=== PATIENT | female | born 1975 | race African-American/Black ===

== ENCOUNTER 2017-02-11 11:53 | Inpatient (IN) | payer OTHER ==
[~2017-02-11] VITALS: Ht 165.1 cm; Wt 47.6 kg
[2017-02-11] MEDS ORDERED: HYDROmorphone 1mg/ml Carpuject IVP PRN ×4 (13:00→15:00)
[2017-02-11 13:30] VITALS: BP 142/78
[2017-02-11] MEDS ORDERED: Hydromorphone 0.5mg/0.5ml inj IVP PRN ×2 (13:45)
[2017-02-11] MEDS: Hydromorphone 0.5mg/0.5ml inj IVP PRN ×5 (13:51→23:52)
[2017-02-11 14:21] LABS: BASOPHILS % (AUTO) 1.1 % (0.0-2.0); EOSINOPHILS % (AUTO) 0.9 % (0.0-3.0); LYMPHOCYTES % (AUTO) 9.5 % (20.0-45.0); MEAN CORPUSCULAR HEMOGLOBIN 31.4 PG (27.0-31.0); MEAN CORPUSCULAR HGB CONC 32.8 G/DL (32.0-36.0); MEAN CORPUSCULAR VOLUME 95 FL (80-99); MEAN PLATELET VOLUME 7.3 FL (6.5-10.1); NEUTROPHILS % (AUTO) 80.4 % (45.0-75.0); PLATELET COUNT 373 K/UL (150-450); RED BLOOD COUNT 3.64 M/UL (4.20-5.40); RED CELL DISTRIBUTION WIDTH 10.6 % (11.6-14.8); WHITE BLOOD COUNT 9.4 K/UL (4.8-10.8)
[2017-02-11 14:29] LABS: ANION GAP 12 mmol/L (5-15); CALCIUM 9.3 MG/DL (8.5-10.1); CARBON DIOXIDE 27 MMOL/L (21-32); CHLORIDE 99 MMOL/L (98-107); CREATININE 0.8 MG/DL (0.55-1.30); GLOMERULAR FILTRATION RATE > 60 mL/min (>60); POTASSIUM 3.4 MMOL/L (3.5-5.1); SODIUM 138 MMOL/L (136-145)
[2017-02-11] MEDS: Potassium Chloride 30 MEQ in Dextrose 5%/Lactated Ringer's 1,000 ML IV SCH ×2 (14:30→18:47)
[2017-02-11] MEDS ORDERED: ceFAZolin 1gm in D5W 55ml IVP ONE (14:30)
--- NOTE | 2017-02-11 17:02 | Diagnostic Imaging Report ---
Indication: Abdominal pain Technique: Supine view of the abdomen Comparison: none Findings: Moderate amount of gas is seen in nondilated large and small bowel loops. No unusual masses or calcifications. Featureless pelvis is probably related to an enlarged uterus Impression: No acute process
[2017-02-11] MEDS ORDERED: Bisacodyl EC 5mg tab ORAL PRN (17:30)
[2017-02-11] MEDS ORDERED: Miralax 17gm pkt ORAL PRN (17:30)
[2017-02-11] MEDS: ceFAZolin sod 1 GM in D5W 55 ML IVPB SCH ×2 (17:32→21:22)
[2017-02-11] MEDS: Docusate 100mg cap ORAL SCH (17:54)
[2017-02-11 21:00] VITALS: BP 122/78
--- NOTE | 2017-02-11 23:45 | Consultation ---
DATE OF CONSULTATION: 02/11/2017 INTERNAL MEDICINE CONSULTATION CHIEF COMPLAINT: Abdominal pain. HISTORY OF PRESENT ILLNESS: The patient is a very pleasant 41-year-old woman who comes to the hospital 2 days following uterine artery embolization done because of large fibroid uterus. She had a postprocedure pain, which was unremitting. She took tramadol without improvement. She had a poor appetite and intake and was constipated. She called Dr. Wilder, who recommended hospitalization. She was admitted directly today. PAST MEDICAL HISTORY: The patient had 2 emergency room visits recently for pelvic pain, but no diagnosis was made. She has a large fibroid uterus and recent embolization as noted above. She has had no pregnancies. She has no history of cardiovascular disease or other major medical problems. ALLERGIES: Tylenol. MEDICATIONS: Reviewed. REVIEW OF SYSTEMS: Otherwise unremarkable. PHYSICAL EXAMINATION: VITAL SIGNS: Normal. The blood pressure is slightly elevated. HEENT: The head is normocephalic. NECK: No jugular venous distention. CHEST: Clear. CARDIAC: Rhythm is regular. ABDOMEN: Soft. There is no liver or spleen enlargement. There is a mass in the pelvis, which is easily palpable and somewhat tender. EXTREMITIES: Have no clubbing, cyanosis, or edema. IMPRESSIONS: 1. Pelvic pain. 2. Constipation. 3. Status post uterine artery embolization for fibroid uterus. PLAN: The patient will be given intravenous fluids, antibiotics, analgesics and laxatives. I will follow her closely with you. Oc Cobian M.D. DR: BRIAN JOB#: [id number] CC: Milo Wilder M.D.; Fax#: [phone] OC COBIAN M.D. ; FAX#: [phone]
[2017-02-12] VITALS (7 sets, daily range): BP systolic 103–118; BP diastolic 62–72
[2017-02-12] MEDS: Hydromorphone 0.5mg/0.5ml inj IVP PRN ×12 (01:23→23:52)
[2017-02-12] MEDS: Potassium Chloride 30 MEQ in Dextrose 5%/Lactated Ringer's 1,000 ML IV SCH ×4 (03:42→23:52)
[2017-02-12] MEDS: ceFAZolin sod 1 GM in D5W 55 ML IVPB SCH ×3 (05:04→22:10)
[2017-02-12 06:59] LABS: BASOPHILS % (AUTO) 0.3 % (0.0-2.0); EOSINOPHILS % (AUTO) 1.2 % (0.0-3.0); LYMPHOCYTES % (AUTO) 11.8 % (20.0-45.0); MEAN CORPUSCULAR HEMOGLOBIN 30.8 PG (27.0-31.0); MEAN CORPUSCULAR VOLUME 93 FL (80-99); MEAN PLATELET VOLUME 7.5 FL (6.5-10.1); NEUTROPHILS % (AUTO) 77.7 % (45.0-75.0); PLATELET COUNT 300 K/UL (150-450); RED CELL DISTRIBUTION WIDTH 10.4 % (11.6-14.8); WHITE BLOOD COUNT 9.2 K/UL (4.8-10.8)
[2017-02-12 07:20] LABS: ALANINE AMINOTRANSFERASE 8 U/L (12-78); ALBUMIN/GLOBULIN RATIO 0.7 (1.0-2.7); ANION GAP 8 mmol/L (5-15); ASPARTATE AMINO TRANSFERASE 19 U/L (15-37); CALCIUM 7.9 MG/DL (8.5-10.1); CARBON DIOXIDE 27 MMOL/L (21-32); CHLORIDE 102 MMOL/L (98-107); CREATININE 0.8 MG/DL (0.55-1.30); GLOMERULAR FILTRATION RATE > 60 mL/min (>60); POTASSIUM 3.4 MMOL/L (3.5-5.1); SODIUM 137 MMOL/L (136-145); TOTAL PROTEIN 7.2 G/DL (6.4-8.2)
[2017-02-12] MEDS: Docusate 100mg cap ORAL SCH ×2 (08:24→18:28)
[2017-02-12] MEDS ORDERED: Fleet's Enema 133ml RECTAL ONE (09:00)
--- NOTE | 2017-02-12 09:34 | General Progress Note ---
Assessment/Plan Assessment/Plan 1. Pelvic pain. 2. Constipation. 3. Status post uterine artery embolization for fibroid uterus. MRI pdg Hgb down likely hydration still with pain requires IV dilaudid just got enema K low, rx cont rx repeat labs Subjective Gastrointestinal/Abdominal: Reports: abdominal pain, constipated Allergies: Coded Allergies: ACETAMINOPHEN (Verified Allergy, Severe, 02/11/17) Rectal Bleeding ASPIRIN (Verified Allergy, Unknown, 02/11/17) NSAIDS (NON-STEROIDAL ANTI-INFLAMMA (Verified Allergy, Unknown, 02/11/17) Objective Last 24 Hour Vital Signs Date Time Temp Pulse Resp B/P (MAP) Pulse Ox O2 Delivery O2 Flow Rate FiO2 02/12/17 08:29 99.6 99 18 109/69 100 Room Air 02/12/17 05:00 98.6 02/12/17 04:00 99.8 82 18 116/67 98 Room Air 02/12/17 00:45 98.3 02/12/17 00:05 100.6 02/12/17 00:00 99.0 84 18 103/62 98 Room Air 02/11/17 21:00 99.6 80 18 122/78 100 Room Air 02/11/17 17:31 98.5 02/11/17 13:30 98.5 93 20 142/78 99 Room Air Intake and Output 02/11/17 02/12/17 19:00 07:00 Intake Total 1440 ml Balance 1440 ml Intake Oral 240 ml IV Total 1200 ml # Voids 1 4 Laboratory Tests 02/11/17 13:45: White Blood Count 9.4, Red Blood Count 3.64L, Hemoglobin 11.4L, Hematocrit 34.8L , Mean Corpuscular Volume 95, Mean Corpuscular Hemoglobin 31.4H, Mean Corpuscular Hemoglobin Concent 32.8, Red Cell Distribution Width 10.6L, Platelet Count 373, Mean Platelet Volume 7.3, Neutrophils (%) (Auto) 80.4H, Lymphocytes (%) (Auto) 9.5L, Monocytes (%) (Auto) 8.0, Eosinophils (%) (Auto) 0.9, Basophils (%) (Auto) 1.1, Sodium Level 138, Potassium Level 3.4L, Chloride Level 99, Carbon Dioxide Level 27, Anion Gap 12, Blood Urea Nitrogen 4L, Creatinine 0.8, Estimat Glomerular Filtration Rate > 60, Glucose Level 91, Calcium Level 9.3 02/12/17 05:00: White Blood Count 9.2, Red Blood Count 3.20L, Hemoglobin 9.9L, Hematocrit 29.9L , Mean Corpuscular Volume 93, Mean Corpuscular Hemoglobin 30.8, Mean Corpuscular Hemoglobin Concent 33.0, Red Cell Distribution Width 10.4L, Platelet Count 300, Mean Platelet Volume 7.5, Neutrophils (%) (Auto) 77.7H, Lymphocytes (%) (Auto) 11.8L, Monocytes (%) (Auto) 9.0, Eosinophils (%) (Auto) 1.2, Basophils (%) (Auto) 0.3, Sodium Level 137, Potassium Level 3.4L, Chloride Level 102, Carbon Dioxide Level 27, Anion Gap 8, Blood Urea Nitrogen 2L, Creatinine 0.8, Estimat Glomerular Filtration Rate > 60, Glucose Level 119H, Calcium Level 7.9L, Total Bilirubin 0.4, Aspartate Amino Transf (AST/SGOT) 19, Alanine Aminotransferase (ALT/SGPT) 8L, Alkaline Phosphatase 43L, Total Protein 7.2, Albumin 2.9L, Globulin 4.3, Albumin/Globulin Ratio 0.7L Height (Feet): 5 Height (Inches): 5.00 Weight (Pounds): 105 General Appearance: mild distress Cardiovascular: normal rate Abdomen: soft, tender, mass - pelvic OC FLORES Feb 12, 2017 09:34
--- NOTE | 2017-02-12 10:43 | General Surgery Progress Note ---
General Surgery-Progress Note Subjective Day of Surgery: february 09 Reason for Consult post op pain, uncontrolled Procedure Performed uterine artery embolization Symptoms: improved, tolerating diet, passing flatus, BM Additional Comments watery BM post fleets enema Objective Last 24 Hour Vital Signs Date Time Temp Pulse Resp B/P (MAP) Pulse Ox O2 Delivery O2 Flow Rate FiO2 02/12/17 08:29 99.6 99 18 109/69 100 Room Air 02/12/17 05:00 98.6 02/12/17 04:00 99.8 82 18 116/67 98 Room Air 02/12/17 00:45 98.3 02/12/17 00:05 100.6 02/12/17 00:00 99.0 84 18 103/62 98 Room Air 02/11/17 21:00 99.6 80 18 122/78 100 Room Air 02/11/17 17:31 98.5 02/11/17 13:30 98.5 93 20 142/78 99 Room Air I&O Intake and Output 02/11/17 02/12/17 19:00 07:00 Intake Total 1440 ml Balance 1440 ml Intake Oral 240 ml IV Total 1200 ml # Voids 1 4 Dressing: dry Wound: clean, dry, intact Drains: none Cardiovascular: RSR Respiratory: clear Abdomen: soft, flat, scaphoid, tenderness, present bowel sounds Extremities: no edema, no tenderness, no cyanosis Laboratory Tests Test 02/11/17 13:45 02/12/17 05:00 White Blood Count 9.4 K/UL (4.8-10.8) 9.2 K/UL (4.8-10.8) Red Blood Count 3.64 M/UL (4.20-5.40) L 3.20 M/UL (4.20-5.40) L Hemoglobin 11.4 G/DL (12.0-16.0) L 9.9 G/DL (12.0-16.0) L Hematocrit 34.8 % (37.0-47.0) L 29.9 % (37.0-47.0) L Mean Corpuscular Volume 95 FL (80-99) 93 FL (80-99) Mean Corpuscular Hemoglobin 31.4 PG (27.0-31.0) H 30.8 PG (27.0-31.0) Mean Corpuscular Hemoglobin Concent 32.8 G/DL (32.0-36.0) 33.0 G/DL (32.0-36.0) Red Cell Distribution Width 10.6 % (11.6-14.8) L 10.4 % (11.6-14.8) L Platelet Count 373 K/UL (150-450) 300 K/UL (150-450) Mean Platelet Volume 7.3 FL (6.5-10.1) 7.5 FL (6.5-10.1) Neutrophils (%) (Auto) 80.4 % (45.0-75.0) H 77.7 % (45.0-75.0) H Lymphocytes (%) (Auto) 9.5 % (20.0-45.0) L 11.8 % (20.0-45.0) L Monocytes (%) (Auto) 8.0 % (1.0-10.0) 9.0 % (1.0-10.0) Eosinophils (%) (Auto) 0.9 % (0.0-3.0) 1.2 % (0.0-3.0) Basophils (%) (Auto) 1.1 % (0.0-2.0) 0.3 % (0.0-2.0) Sodium Level 138 MMOL/L (136-145) 137 MMOL/L (136-145) Potassium Level 3.4 MMOL/L (3.5-5.1) L 3.4 MMOL/L (3.5-5.1) L Chloride Level 99 MMOL/L (98-107) 102 MMOL/L (98-107) Carbon Dioxide Level 27 MMOL/L (21-32) 27 MMOL/L (21-32) Anion Gap 12 mmol/L (5-15) 8 mmol/L (5-15) Blood Urea Nitrogen 4 mg/dL (7-18) L 2 mg/dL (7-18) L Creatinine 0.8 MG/DL (0.55-1.30) 0.8 MG/DL (0.55-1.30) Estimat Glomerular Filtration Rate > 60 mL/min (>60) > 60 mL/min (>60) Glucose Level 91 MG/DL (74-106) 119 MG/DL (74-106) H Calcium Level 9.3 MG/DL (8.5-10.1) 7.9 MG/DL (8.5-10.1) L Total Bilirubin 0.4 MG/DL (0.2-1.0) Aspartate Amino Transf (AST/SGOT) 19 U/L (15-37) Alanine Aminotransferase (ALT/SGPT) 8 U/L (12-78) L Alkaline Phosphatase 43 U/L (46-116) L Total Protein 7.2 G/DL (6.4-8.2) Albumin 2.9 G/DL (3.4-5.0) L Globulin 4.3 g/dL Albumin/Globulin Ratio 0.7 (1.0-2.7) L Imaging pelvic mri reviewed, normal post embolization changes, normal bowel, x ray, abdomen, no ileus. Additional Comments normal white count, doubt infection, normal temperature elevation following embolization Plan Additional Comments ambulate, increase diet as tolerated, change to oral pain medication when possible. dr killian is covering the patient this week end. Milo Wilder MD Feb 12, 2017 10:43
--- NOTE | 2017-02-12 11:09 | Diagnostic Imaging Report ---
Indication: Abdominal pain status post uterine fibroid embolization Technique: MRI Pelvis wo/w Contrast MRI of the pelvis was obtained utilizing a multiplanar, multisequence acquisition before and after the administration of IV gadolinium. Acquired sequences: 3 plane localizer, sagittal and axial T2 FRSFE, Axial and coronal T2 FRSFE fat-sat, axial T1 FSE, axial lava, oblique coronal T2, axial T1 F/S pre, axial and coronal T1 fat-sat postcontrast. Comparison: None Findings: Dominant submucosal fibroid along the right aspect of the uterus measures approximately 9 cm AP by 8 cm transverse by 7.5 cm craniocaudal. Additional smaller fibroid in the posterior aspect of the uterus on the left measures 2.3 cm AP by 3.4 cm transverse by 2.7 cm craniocaudal. Postcontrast imaging shows no enhancement in the smaller fibroid relative to the uterus. The larger fibroid shows heterogeneous enhancement but significantly decreased enhancement when compared to the uterus. Correlation to preprocedure imaging would be helpful for better assessment of treatment effect. Left ovary is slightly enlarged compared to the right ovary, measuring approximately 3.5 x 2.3 cm compared to approximately 2.7 x 1.7 cm. Multiple follicular cysts are seen in the left ovary. Ovarian enhancement appears symmetric. Small amount of free pelvic fluid is noted, likely physiologic. Imaged portions of the bowel are unremarkable in appearance. Osseous structures are unremarkable in appearance. Imaged vascular structures are normal in caliber. Impression: Fibroid uterus with 2 dominant fibroids, largest measuring up to 9 cm in diameter. Smaller fibroid demonstrates no significant postcontrast enhancement. Heterogeneous enhancement is noted within the larger fibroid. Correlation to pre uterine artery embolization imaging would be helpful for better assessment of treatment effect. Slightly increased size of the left ovary when compared to the right, likely related to increased number of follicles/cysts on the left. Consider pelvic ultrasound for evaluation of vascular flow to the ovaries to exclude the remote possibility of early torsion in this patient with postprocedural pain. Imaged portions of the bowel are unremarkable in appearance. Findings and images reviewed in person with referring physician Dr. Tina MD.
--- NOTE | 2017-02-12 11:18 | Diagnostic Imaging Report ---
Indication: Abdominal pain status post uterine fibroid embolization Technique: MRI of the pelvis was obtained utilizing a multiplanar/multisequence technique. 3-D reconstructions were created on a stand-alone workstation and archived to PACS. Comparison: Correlation made to concurrent MRI of the pelvis without and with contrast. Findings: Abdominal aorta, internal/external iliac arteries, common femoral artery and visualized portions of the superficial femoral and profunda femoris arteries are patent and of normal caliber bilaterally. There is no evidence to suggest aneurysm or stenosis bilaterally. Some flow related signal is noted in the expected regions of the bilateral uterine arteries, left greater than right. There is question of possible flow to the dominant right-sided fibroid via ovarian collaterals. Comparison with previous examination would be of help to assess for interval change after embolization. Impression: Some flow related signal noted in the bilateral uterine arteries, left greater than right. Suggestion of a degree of right ovarian artery supply to the dominant fibroid. Again, comparison with preembolization imaging would be helpful for better assessment of treatment effect. Findings and images reviewed in person with referring physician Dr. Tina MD.
[2017-02-12] MEDS ORDERED: NS 500ML ONE (17:14)
[2017-02-12] MEDS ORDERED: Tubing IV Secondary IV ONE (17:14)
[2017-02-13] MEDS: Hydromorphone 0.5mg/0.5ml inj IVP PRN ×9 (01:28→22:23)
[2017-02-13 05:00] VITALS: BP 105/67
[2017-02-13] MEDS: ceFAZolin sod 1 GM in D5W 55 ML IVPB SCH ×3 (05:06→22:00)
[2017-02-13] MEDS: Potassium Chloride 30 MEQ in Dextrose 5%/Lactated Ringer's 1,000 ML IV SCH ×3 (05:10→22:01)
[2017-02-13 07:48] LABS: BASOPHILS % (AUTO) 0.6 % (0.0-2.0); EOSINOPHILS % (AUTO) 2.2 % (0.0-3.0); LYMPHOCYTES % (AUTO) 10.9 % (20.0-45.0); MEAN CORPUSCULAR HEMOGLOBIN 31.3 PG (27.0-31.0); MEAN CORPUSCULAR HGB CONC 33.3 G/DL (32.0-36.0); MEAN CORPUSCULAR VOLUME 94 FL (80-99); MEAN PLATELET VOLUME 7.1 FL (6.5-10.1); NEUTROPHILS % (AUTO) 77.4 % (45.0-75.0); PLATELET COUNT 305 K/UL (150-450); RED BLOOD COUNT 3.04 M/UL (4.20-5.40); RED CELL DISTRIBUTION WIDTH 10.3 % (11.6-14.8); WHITE BLOOD COUNT 7.3 K/UL (4.8-10.8)
[2017-02-13 08:00] VITALS: BP 109/59
[2017-02-13] MEDS: Docusate 100mg cap ORAL SCH ×2 (08:18→20:48)
[2017-02-13 08:21] LABS: ANION GAP 7 mmol/L (5-15); CALCIUM 8.1 MG/DL (8.5-10.1); CARBON DIOXIDE 28 MMOL/L (21-32); CHLORIDE 103 MMOL/L (98-107); CREATININE 0.7 MG/DL (0.55-1.30); GLOMERULAR FILTRATION RATE > 60 mL/min (>60); POTASSIUM 4.1 MMOL/L (3.5-5.1); SODIUM 138 MMOL/L (136-145)
[2017-02-13 12:00] VITALS: BP 103/63
--- NOTE | 2017-02-13 18:25 | Pulmonology Progress Note ---
Assessment/Plan Assessment/Plan 1. Pelvic pain. 2. Constipation. 3. Status post uterine artery embolization for fibroid uterus. Hgb down likely hydration still with pain requires IV dilaudid bowel care replaced lytes pen monitor uop labs stable dc planning when pain controlled Subjective Constitutional: Reports: no symptoms HEENT: Repors: no symptoms Respiratory: Reports: no symptoms Cardiovascular: Reports: no symptoms Gastrointestinal/Abdominal: Reports: bloating, other Genitourinary: Reports: no symptoms Neurologic: Reports: no symptoms Allergies: Coded Allergies: ACETAMINOPHEN (Verified Allergy, Severe, 02/11/17) Rectal Bleeding ASPIRIN (Verified Allergy, Unknown, 02/11/17) NSAIDS (NON-STEROIDAL ANTI-INFLAMMA (Verified Allergy, Unknown, 02/11/17) Subjective complains of pain positive uop no bm no cp mild nauese mnimal bleeding lgt noted Objective Last 24 Hour Vital Signs Date Time Temp Pulse Resp B/P (MAP) Pulse Ox O2 Delivery O2 Flow Rate FiO2 02/13/17 16:00 97.0 02/13/17 12:00 99.1 102 18 103/63 99 Room Air 02/13/17 08:00 98.0 100 18 109/59 99 Room Air 02/13/17 05:00 98.4 98 18 105/67 100 Room Air 02/12/17 23:50 98.2 92 18 108/71 98 Room Air 02/12/17 20:45 98.3 02/12/17 20:00 100.0 94 18 109/68 98 Intake and Output 02/12/17 02/13/17 19:00 07:00 Intake Total 1530 ml 1200 ml Balance 1530 ml 1200 ml Intake Oral 720 ml IV Total 810 ml 1200 ml # Voids 2 4 # Bowel Movements 3 General Appearance: WD/WN Respiratory/Chest: lungs clear, no respiratory distress Cardiovascular: normal rate, regular rhythm Abdomen: distended, tender Extremities: no cyanosis, no clubbing Skin: no ulcers 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: 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 grossly normal, oriented x 3 Laboratory Tests 02/13/17 06:46: White Blood Count 7.3, Red Blood Count 3.04L, Hemoglobin 9.5L, Hematocrit 28.6L , Mean Corpuscular Volume 94, Mean Corpuscular Hemoglobin 31.3H, Mean Corpuscular Hemoglobin Concent 33.3, Red Cell Distribution Width 10.3L, Platelet Count 305, Mean Platelet Volume 7.1, Neutrophils (%) (Auto) 77.4H, Lymphocytes (%) (Auto) 10.9L, Monocytes (%) (Auto) 9.0, Eosinophils (%) (Auto) 2.2, Basophils (%) (Auto) 0.6, Sodium Level 138, Potassium Level 4.1, Chloride Level 103, Carbon Dioxide Level 28, Anion Gap 7, Blood Urea Nitrogen 1L, Creatinine 0.7, Estimat Glomerular Filtration Rate > 60, Glucose Level 115H, Calcium Level 8.1L Current Medications Medications (Trade) Dose Ordered Sig/Kayli Route PRN Reason Start Time Stop Time Status Last Admin Dose Admin Bisacodyl (Dulcolax) 10 mg DAILYPRN PRN ORAL Constipation 02/11/17 17:30 03/13/17 17:29 Cefazolin Sodium 1 gm/Dextrose 55 ml @ 110 mls/hr Q8HR IVPB 02/11/17 15:30 02/18/17 15:29 02/13/17 13:42 Diphenhydramine HCl (Benadryl) 50 mg HSPRN PRN ORAL Insomnia 02/11/17 21:00 03/13/17 20:59 Diphenhydramine HCl (Benadryl) 50 mg Q4H PRN ORAL Itching 02/11/17 13:30 03/13/17 13:29 Docusate Sodium (Colace) 100 mg TWICE A DAY ORAL 02/11/17 18:00 03/13/17 17:59 02/12/17 18:28 Hydromorphone HCl (Dilaudid) 1 mg EVERY HOUR PRN IVP Severe Pain (Pain Scale 7-10) 02/11/17 13:45 02/18/17 12:59 02/13/17 17:25 Hydromorphone HCl (Dilaudid) 1 mg Q2H PRN IVP Moderate Pain (Pain Scale 4-6) 02/11/17 13:45 02/18/17 12:59 Hydromorphone HCl (Dilaudid) 1 mg Q3H PRN IVP Mild Pain (Pain Scale 1-3) 02/11/17 13:45 02/18/17 12:59 Hydromorphone HCl (Dilaudid) 1 mg QHS PRN IVP SEVERE BREAKTHROUGH PAIN 02/11/17 15:00 02/18/17 14:59 Ondansetron HCl (Zofran) 4 mg Q4H PRN IVP Nausea & Vomiting 02/11/17 15:00 03/13/17 14:59 Polyethylene Glycol (Miralax) 17 gm DAILYPRN PRN ORAL Constipation 02/11/17 17:30 03/13/17 17:29 Potassium Chloride 30 meq/ Dextrose/Lactated Ringer's 1,015 ml @ 150 mls/hr Q6H46M IV 02/11/17 14:30 03/13/17 14:29 02/13/17 13:42 Potassium Chloride (K-Dur) 20 meq TWICE A DAY ORAL 02/12/17 09:45 03/14/17 09:44 02/13/17 08:17 DAVE LOONEY DO Feb 13, 2017 18:25
[2017-02-13 20:00] VITALS: BP 105/58
[2017-02-14] VITALS: BP 96/62
[2017-02-14] MEDS: Hydromorphone 0.5mg/0.5ml inj IVP PRN (03:20)
[2017-02-14 04:00] VITALS: BP 130/63
[2017-02-14] MEDS: Potassium Chloride 30 MEQ in Dextrose 5%/Lactated Ringer's 1,000 ML IV SCH (05:45)
[2017-02-14] MEDS: ceFAZolin sod 1 GM in D5W 55 ML IVPB SCH ×2 (05:45→13:32)
[2017-02-14 08:00] VITALS: BP 110/72
[2017-02-14] MEDS ORDERED: HYDROmorphone 2mg tab ORAL PRN (08:15)
[2017-02-14] MEDS: Docusate 100mg cap ORAL SCH (08:21)
[2017-02-14] MEDS ORDERED: Hydromorphone 0.5mg/0.5ml inj IVP PRN (08:30)
[2017-02-14] MEDS: traMADol 50mg tab ORAL PRN ×2 (10:00→14:24)
[2017-02-14 12:00] VITALS: BP 136/63
[2017-02-14] MEDS ORDERED: DILAUDID1 MG/1 ML PO (14:40)
[2017-02-14] MEDS ORDERED: DILAUDID8 MG PO (14:41)
--- NOTE | 2017-02-14 15:11 | Pulmonology Progress Note ---
Assessment/Plan Assessment/Plan 1. Pelvic pain. 2. Constipation. 3. Status post uterine artery embolization for fibroid uterus. pain control bowel care monitor uop labs stable dc planning when pain controlled Subjective Constitutional: Reports: no symptoms HEENT: Repors: no symptoms Respiratory: Reports: no symptoms Cardiovascular: Reports: no symptoms Gastrointestinal/Abdominal: Reports: other - pain Allergies: Coded Allergies: ACETAMINOPHEN (Verified Allergy, Severe, 02/11/17) Rectal Bleeding ASPIRIN (Verified Allergy, Unknown, 02/11/17) NSAIDS (NON-STEROIDAL ANTI-INFLAMMA (Verified Allergy, Unknown, 02/11/17) Subjective pain better controlled today positive uop and bm no cp no nausea mnimal bleeding tolerated po no fever Objective Last 24 Hour Vital Signs Date Time Temp Pulse Resp B/P (MAP) Pulse Ox O2 Delivery O2 Flow Rate FiO2 02/14/17 13:09 98.0 02/14/17 12:00 98.6 91 17 136/63 97 02/14/17 10:59 98.0 02/14/17 08:00 98.4 96 19 110/72 96 02/14/17 04:00 98.0 81 20 130/63 99 02/14/17 00:00 98.6 77 18 96/62 100 Room Air 02/13/17 20:00 97.9 89 20 105/58 97 Room Air 02/13/17 16:00 97.0 Intake and Output 02/13/17 02/14/17 19:00 07:00 Intake Total 2220 ml 2345 ml Balance 2220 ml 2345 ml Intake Oral 720 ml 240 ml IV Total 1500 ml 2105 ml # Voids 4 4 # Bowel Movements 1 2 General Appearance: WD/WN Respiratory/Chest: lungs clear Cardiovascular: normal rate, regularly irregular Abdomen: non distended, tender - mild Extremities: no cyanosis 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: no motor/sensory deficits, alert, oriented x 3 Current Medications Medications (Trade) Dose Ordered Sig/Kayli Route PRN Reason Start Time Stop Time Status Last Admin Dose Admin Bisacodyl (Dulcolax) 10 mg DAILYPRN PRN ORAL Constipation 02/11/17 17:30 03/13/17 17:29 Cefazolin Sodium 1 gm/Dextrose 55 ml @ 110 mls/hr Q8HR IVPB 02/11/17 15:30 02/18/17 15:29 02/14/17 13:32 Diphenhydramine HCl (Benadryl) 50 mg HSPRN PRN ORAL Insomnia 02/11/17 21:00 03/13/17 20:59 Diphenhydramine HCl (Benadryl) 50 mg Q4H PRN ORAL Itching 02/11/17 13:30 03/13/17 13:29 Docusate Sodium (Colace) 100 mg TWICE A DAY ORAL 02/11/17 18:00 03/13/17 17:59 02/14/17 08:21 Hydromorphone HCl (Dilaudid) 1 mg Q3H PRN IVP SEVERE BREAKTHROUGH PAIN 02/14/17 08:30 02/21/17 08:29 Hydromorphone HCl (Dilaudid) 2 mg Q3H PRN ORAL Severe Pain (Pain Scale 7-10) 02/14/17 08:15 02/21/17 08:14 02/14/17 12:10 Ondansetron HCl (Zofran) 4 mg Q4H PRN IVP Nausea & Vomiting 02/11/17 15:00 03/13/17 14:59 Polyethylene Glycol (Miralax) 17 gm DAILYPRN PRN ORAL Constipation 02/11/17 17:30 03/13/17 17:29 Potassium Chloride (K-Dur) 20 meq TWICE A DAY ORAL 02/12/17 09:45 03/14/17 09:44 02/14/17 08:21 Tramadol HCl (Ultram) 50 mg Q4H PRN ORAL Moderate Pain (Pain Scale 4-6) 02/14/17 08:15 02/21/17 08:14 02/14/17 14:24 DAVE LOONEY DO Feb 14, 2017 15:11
--- NOTE | 2017-02-18 15:27 | Discharge Summary ---
Discharge Summary Hospital Course Date of Admission Feb 11, 2017 at 12:52 Date of Discharge Feb 14, 2017 at 15:30 Admitting Diagnosis HPI Nika Magana is a 41 year old female who was admitted on Feb 11, 2017 at 12: 52 for Uncontrolled Post-Op Pain Hospital Course hugo smith #[id number] Discharge Medications Continued Medications: Hydromorphone Hcl (Dilaudid) 8 Mg Tablet 2 MG PO Q4HR for For Pain, #20 TAB Discontinued Medications: Hydromorphone Hcl (Dilaudid) 1 Mg/1 Ml Liquid 2 MG PO Q4HR for For Pain, #20 ML Discharge Condition Upon Discharge: stable Discharge Disposition Patient was discharged to Home (01) Discharge Diagnoses: Discharge Instructions Discharge Instructions Special Instructions I have been assigned to complete a D/C Summary on this account. I was not involved in the patient management Audrey Borrero NP ([place]te[place]) Feb 18, 2017 15:27
--- NOTE | 2017-02-19 13:15 | Discharge Summary 2 SIG ---
DATE OF ADMISSION: 02/11/2017 DATE OF DISCHARGE: 02/14/2017 REASON FOR ADMISSION: 41-year-old female, who undergone two days prior to presentation uterine artery embolization due to the large fibroid uterus, presented with postoperative unremitting pain. According to the patient, she took tramadol without much improvement. The patient was constipated. She had poor appetite and poor oral intake. She was recommended by surgeon to come to the hospital for evaluation. The patient was admitted directly with diagnoses of pelvic pain, constipation, status post uterine artery embolization for fibroid uterus. HOSPITAL COURSE: The patient was admitted. The patient was started on IV fluids. The patient was started on empiric antibiotics. Bowel regimen was instituted. Pain management was addressed. The patient was closely followed. The patient had a bowel movement. Pain was controlled. Urine output was closely monitored. Laboratory workup was stable. The patient was able to tolerate diet and had sufficient oral intake. The patient was stable for discharge home. FINAL DIAGNOSES: 1. Pelvic pain. 2. Constipation. 3. Status post uterine artery embolization for fibroid uterus. DISCHARGE MEDICATIONS: See medication reconciliation list. DISCHARGE INSTRUCTIONS: The patient was discharged home. Follow up with primary medical doctor. Follow up with surgeon as needed. Milo Waterman M.D. I have been assigned to dictate discharge summary on this account and I was not involved in the patient's management. Audrey Piperkaila N.P. DR: CORRIE JOB#: [id number] CC: LISA
== END 2017-02-14 15:30 | disposition home or self-care (01) | DRG 948 ==
LOC: 3E 12:52
DX: G89.18 Other acute postprocedural pain (principal); K59.00 Constipation, unspecified; R10.2 Pelvic and perineal pain; Z88.6 Allergy status to analgesic agent
CPT/HCPCS: 36415; 72197; 72198; 74000; 80048; 80053; 85025; A9585; J8499